=== PATIENT | male | born 1985 | race Hispanic/Latino ===

== ENCOUNTER 2021-08-28 14:34 | Emergency (ER) | payer SELFPAY ==
[~2021-08-28] VITALS: Ht 172.7 cm; Wt 86.2 kg
== END 2021-08-28 15:30 | disposition home or self-care (01) ==
LOC: FSED 14:58
DX: R06.02 Shortness of breath (principal); R07.9 Chest pain, unspecified; I10 Essential (primary) hypertension
CPT/HCPCS: 80048; 82553; 84484; 85025; 93005; 99283